=== PATIENT | male | born 1965 | race Hispanic/Latino ===

== ENCOUNTER 2021-10-26 13:56 | Emergency (ER) | payer SELFPAY ==
--- OUTSIDE RECORDS SUMMARY | 2021-10-26 13:59 | XMS REPORT | Continuity of Care Document ---
:1965 Author Organization [facility] t Address [address] [place] [address] Dr. Rojas. [address] [place] [address] Care Team Providers Name Role Phone Sami Domínguez MD, Lincoln T Primary Care Physician Liam KOVACS, Kandace Roy Attending Clinician Unavailable Only, Shashi Uc Test Attending Clinician Unavailable Unknown, Attending Attending Clinician Unavailable Yaya GRANT, Daquan Head Attending Clinician DAQUAN JAVIER Attending Clinician Unavailable Problems Condition Condition Condition Status Onset Resolution Last Treating Co mments Source Name Details Category Date Date Treatment Clinician Date Pain of Pain of Disease Active Univers right right 3-01 ity of lower lower 00:00: [place] extremity extremity 00 [facility] Branch Blurred Blurred Disease Active Univers vision, vision, 8-21 ity of left eye left eye 00:00: [place] 00 Medical Branch 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 8- ity of of both of both 00:00: [place] eyes eyes 00 Medical Branch Glaucoma Glaucoma Disease Active Unive rs suspect of suspect of 8- it y of both eyes both eyes [facility]: [facility] Dry eyes, Dry eyes, Disease Active Uni vers bilateral bilateral 8-21 ity of 00:00: [place] [address] Medical Branch Essential Essential Disease Active Uni vers hypertensi hypertensi 5-08 it y of on on 00:00: [place] [address] Medical [place] Type 2 Type 2 Disease Active Univers diabetes diabetes 08 ity of mellitus mellitus 00:00: [address] Allergies, Adverse Reactions, Alerts Allergy Allergy Status Severity Reaction(s) Onset Inactive Treating Comm ents Source Name Type Date Date Clinician NO KNOWN Drug Active Univers ALLERGIE Class ity of S [facility] Social History Social Habit Start Date Stop Date Quantity Comments Source History SDOH University o f Alcohol Frequency [place] M edical Branch History SDOH University o f Alcohol Std [place] Medical Drinks Branch History SDKY University o f Alcohol Binge [place] Medic al Branch Exposure to 2021-09-09 2021-09-19 Not sure [facility]-CoV-2 00:00:00 14:39:00 [facility] (event) [place] Alcohol intake 2020-06-30 2020-06-30 .12 /d University of 00:00:00 00:00:00 [facility] Tobacco use and 2014-07-15 2014-07-15 Smokeless tobacco Un iversity of exposure 00:00:00 00:00:[address] [facility] Alcohol Comment 2014-04-25 2014-04-25 occasionally Univers ity of 00:00:00 00:00:00 [facility] Sex Ass[birth year] At [birth year] Universit y of 00:00:00 00:00:00 [facility] Smoking Status Start Date Stop Date Source Never smoked tobacco [facility] Medications Ordered Filled Start Stop Current Ordering Indication Dosage Frequency Signature Comments Components Source Medication Medication Date Date Medication? Clinician (SIG) Name Name lisinopriL- Yes [id number] 1{tbl} Take 1 Univers hydrochloro 4-23 tablet by ity of thiazide 00:00: mouth 2 [place] 20-12.5 mg 00 (two) Medical per tablet times Branch daily. propranoloL Yes [id number] TAKE TWO Univers 40 mg 4-23 TABLETS BY ity of tablet 00:00: MOUTH [place] 00 TWICE Medical DAILY Branch atorvastati Yes [id number] 20mg Take 1 Univers n 20 mg 4-23 tablet by ity of tablet 00:00: mouth at [place] 00 bedtime. Medical Branch celecoxib Yes [id number] 200mg Take 1 Univers (CELEBREX) 4-23 capsule by ity of 200 mg 00:00: mouth [place] capsule 00 daily. Medical Branch insulin NPH Yes 45U inject 45 U nivers 100 unit/mL 4-23 Units ity of injection 00:00: under the Shashi as 00 skin every Medical morning Branch and evening. Insulin Yes Use as Univers [place], 4-23 directed ity of Disposable, 00:00: [place] (ANIYA PEN 00 Medical NEEDLE) 32 Branch gauge x 5/32" Ndle topiramate Yes [id number] 50mg Take 1 U nivers 50 mg 4-23 tablet by ity of tablet 00:00: mouth at [place] 00 bedtime. Medical Branch omeprazole Yes [id number] 40mg Take 1 U nivers 40 mg 4-23 capsule by ity of capsule 00:00: mouth [place] 00 daily. Medical Branch cyclobenzap Yes [id number] 10mg Take 1 Univers rine 10 mg 4-23 tablet by ity of tablet 00:00: mouth at [place] 00 bedtime. Medical Branch lisinopriL- Yes [id number] 1{tbl} Take 1 Univers hydrochloro 4-23 tablet by ity of thiazide 00:00: mouth 2 [place] 20-12.5 mg 00 (two) Medical per tablet times Branch daily. propranoloL Yes [id number] TAKE TWO Univers 40 mg 4-23 TABLETS BY ity of tablet 00:00: MOUTH [place] 00 TWICE Medical DAILY Branch atorvastati Yes [id number] 20mg Take 1 Univers n 20 mg 4-23 tablet by ity of tablet 00:00: mouth at [place] 00 bedtime. Medical Branch celecoxib Yes [id number] 200mg Take 1 Univers (CELEBREX) 4-23 capsule by ity of 200 mg 00:00: mouth [place] capsule 00 daily. Medical Branch insulin NPH Yes 45U inject 45 U nivers 100 unit/mL 4-23 Units ity of injection 00:00: under the Shashi as 00 skin every Medical morning Branch and evening. Insulin Yes Use as Univers [place], 4-23 directed ity of Disposable, 00:00: [place] (ANIYA PEN 00 Medical NEEDLE) 32 Branch gauge x 5/32" Ndle topiramate Yes [id number] 50mg Take 1 U nivers 50 mg 4-23 tablet by ity of tablet 00:00: mouth at [place] [address] bedtime. Medical Branch omeprazole Yes [id number] 40mg Take 1 U nivers 40 mg 4-23 capsule by ity of capsule 00:00: mouth [place] 00 daily. Medical Branch cyclobenzap Yes [id number] 10mg Take 1 Univers rine 10 mg 4-23 tablet by ity of tablet 00:00: mouth at [place] [address] bedtime. Medical Branch aspirin 81 Yes 81mg Take 81 mg U nivers mg chewable 5-11 by mouth ity of tablet 09:37: daily. [address] Branch Magnesium Yes 2{capsu Take 2 Uni vers Oxide 500 5-11 le} Caps by ity of mg Cap 09:37: mouth 2 [place] [address] (two) Medical times Branch daily. aspirin 81 Yes 81mg Take 81 mg U nivers mg chewable 5-11 by mouth ity of tablet 09:37: daily. [address] Branch Magnesium 0 Yes 2{capsu Take 2 Uni vers Oxide 500 5-11 le} Caps by ity of mg Cap 09:37: mouth 2 [place] [address] (two) Medical times Branch daily. blood sugar Yes [id number] Check Univers diagnostic 07-05 9109 blood ity of (TRUETEST 00:00: sugar two Shashi as TEST 00 times a Medical STRIPS) day. Type Branch strip 2 diabetes mellitus without complicati on, with termite treater insulin use blood sugar Yes [id number] Check Univers diagnostic 07-05 9109 blood ity of (TRUETEST 00:00: sugar two Shashi as TEST 00 times a Medical STRIPS) day. Type Branch strip 2 diabetes mellitus without complicati on, with detention insulin use sildenafil Yes Take 1 tab U nivers (VIAGRA) 50 2-11 daily as ity of mg tablet 00:00: needed 30 Shashi as 00 minutes Medical before Branch sexual encounter sildenafil 2016-0 Yes Take 1 tab U nivers (VIAGRA) 50 2-11 daily as ity of mg tablet 00:00: needed 30 Shashi as 00 minutes Medical before Branch sexual encounter Procedures This patient has no known procedures. Encounters Start End Encounter Admission Attending Care Care Encounter Source Date/Time Date/Time Type Type Clinicians Facility Department ID 2021-09-20 2021-09-20 Telephone CORINNA Wheeler [id number] Univers 00:00:00 00:00:00 Kandace SALAZAR [id number] i ty of [facility] [id number] Shashi as [id number] [facility] 019 Branch 2021-09-19 2021-09-19 Laboratory Only, Shashi Uc Test [facility] [id number] Univers 14:30:00 14:45:37 Only Unknown, Attending HEALTH [id number] shadi of Daquan Javier [place] [id number] [place] [id number] [facility] PRIMARY & 370 Branch SPECIALTY CARE 2021-09-19 2021-09-19 Outpatient R YAYA [facility] [id number] Univers 14:30:00 14:45:37 DAQUAN hsu [facility] Results This patient has no known results.
[2021-10-26 14:51] LABS: Absolute Lymphocytes (CBC) 2.2 K/uL (0.7-4.9); Hematocrit 43.1 % (39.6-49.0); Lymphocytes % 30.8 % (15.3-44.8); MCV 83.4 fL (80-100); MPV 8.4 fL (7.6-11.3); RBC Red Blood Cell Count 5.17 M/uL (4.33-5.43)
[2021-10-26 14:54] LABS: Protime INR 1.01
[2021-10-26 15:01] LABS: ALT/SGPT 22 U/L (12-78); AST/SGOT 23 U/L (15-37); Albumin 3.4 g/dL (3.4-5.0); Alkaline Phosphatase 85 U/L (45-117); BUN Blood Urea Nitrogen 19 mg/dL (7-18); Bicarbonate 24 mmol/L (21-32); Bilirubin Total 0.2 mg/dL (0.2-1.0); CKMB Creatine Kinase MB 2.8 ng/mL (1.0-3.6); Creatine Phosphokinase 423 U/L (39-308); Glomerular Filtration Rate 68 ml/min (=/>90); Glucose Level 224 mg/dL (74-106); Lipase 100 U/L (73-393); Magnesium 1.7 mg/dL (1.8-2.4); Potassium 3.6 mmol/L (3.5-5.1); Protein, Total 7.2 g/dL (6.4-8.2); Sodium Level 137 mmol/L (136-145)
[2021-10-26 15:02] LABS: Bilirubin Direct < 0.1 mg/dL (0-0.2)
--- NOTE | 2021-10-26 15:04 | RAD REPORT ---
EXAM DESCRIPTION: CT - Head Brain Wo Cont - 10/26/2021 2:41 pm CLINICAL HISTORY: Syncope COMPARISON: None TECHNIQUE: Computed axial tomography of the head was obtained. IV contrast was not requested. All CT scans are performed using dose optimization technique as appropriate and may include automated exposure control or mA/KV adjustment according to patient size. FINDINGS: An intracranial bleed is not seen . The ventricles are normal in caliber. No extra-axial fluid collection is noted. Mild to moderate low-density areas within periventricular, deep and subcortical white matter likely r epresent ischemic changes secondary to small vessel disease. Fluid within the sphenoid sinus IMPRESSION: No acute intracranial abnormality is seen. If patient's symptoms persist MRI of the bra in would be recommended. Fluid within the sphenoid sinus may indicate acute sinusitis
[2021-10-26 15:47] LABS: Urine Blood Negative (Negative); Urine Glucose Trace (Negative); Urine Protein Negative (Negative); Urine Specific Gravity 1.025 (1.005-1.030); Urine pH 6.5 (5.0-7.0)
--- NOTE | 2021-10-26 16:06 | EDPHYS ---
Physician Documentation [facility] Name: Kenyon Boone Age: 56 yrs Sex: Male : 1965 Arrival Date: 10/26/2021 Time: 13:57 Bed 10 Private MD: ED Physician Ken Gray HPI: 10/26 18:05 This 56 yrs old Male presents to ER via Ambulatory with complaints of Doesn't kb Feel Right, Dizziness, lightheaded. 18:06 The patient presents with dizziness. Onset: The symptoms/episode began/occurred today. kb Context: occurred at home, occurred while the patient was working, just prior to the episode the patient experienced no apparent symptoms. Modifying factors: The symptoms are alleviated by nothing, the symptoms are aggravated by holding head down. Associated signs and symptoms: The patient has no apparent associated signs or symptoms. Severity of symptoms: At their worst the symptoms were mild moderate in the emergency department the symptoms are unchanged. Patient's baseline: Neuro: alert and fully oriented, Motor: no deficits, Ambulation: walks without assistance, Speech: normal. The patient has not experienced similar symptoms in the past. The patient has not recently seen a physician. Historical: - Allergies: 14:09 No Known Allergies; bm7 - Home Meds: 14:09 Novolin 70/30 InnoLet Insulin 100 unit/mL (70-30) Sub-Q inpn [Active]; bm7 - PMHx: 14:09 Diabetes mellitus; Hypertensive disorder; bm7 - PSHx: 14:09 None; bm7 - Immunization history:: Adult Immunizations up to date, Client reports having NOT received the Covid vaccine. - Social history:: Smoking status: Patient/guardian denies using tobacco products. ROS: 18:05 Constitutional: Negative for fever, chills, and weight loss. kb 18:05 Neuro: Positive for dizziness, tingling all over. 18:05 All other systems are negative. Exam: 14:34 Constitutional: This is a well developed, well nourished patient who is awake, alert, kb and in no acute distress. Head/Face: Normocephalic, atraumatic. Eyes: Pupils equal round and reactive to light, extra-ocular motions intact. Lids and lashes normal. Conjunctiva and sclera are non-icteric and not injected. Cornea within normal limits. Periorbital areas with no swelling, redness, or edema. ENT: Moist Mucous membranes Cardiovascular: Regular rate and rhythm with a normal S1 and S2. No gallops, murmurs, or rubs. No pulse deficits. Respiratory: Respirations even and unlabored. No increased work of breathing. Talking in full sentences Abdomen/GI: Soft, non-tender. No distention Skin: Warm, dry with normal turgor. Normal color. MS/ Extremity: Pulses equal, no cyanosis. Neurovascular intact. Full, normal range of motion. Neuro: Awake and alert, GCS 15, oriented to person, place, time, and situation. Moves all extremities. Normal gait. Psych: Awake, alert, with orientation to person, place and time. Behavior, mood, and affect are within normal limits. 14:34 ECG was reviewed by the Attending Physician. An electrocardiogram was deferred on this patient Vital Signs: 14:05 BP 174 / 93; Pulse 94; Resp 18; Temp 98.2(TE); Pulse Ox 98% on R/A; Weight 88.45 kg bm7 (R); Height 5 ft. 8 in. (172.72 cm); Pain 0/10; 15:50 BP 167 / 99 Sitting; Pulse 90; Resp 18; Pulse Ox 100% ; Pain 0/10; kb3 15:52 BP 158 / 97 Standing; Pulse 90; Resp 18; Pulse Ox 99% ; Pain 0/10; kb3 15:55 BP 156 / 85 Supine; Pulse 78; Resp 16; Pulse Ox 98% ; Pain 0/10; kb3 14:05 Body Mass Index 29.65 (88.45 kg, 172.72 cm) bm7 MDM: 14:21 Patient medically screened. kb 18:05 Data reviewed: vital signs, nurses notes. Data interpreted: Pulse oximetry: on room air kb is 98 %. Interpretation: normal. Counseling: I had a detailed discussion with the patient and/or guardian regarding: the historical points, exam findings, and any diagnostic results supporting the discharge/admit diagnosis, lab results, radiology results, the need for outpatient follow up, a family practitioner, to return to the emergency department if symptoms worsen or persist or if there are any questions or concerns that arise at home. 10/26 14:22 Order name: Basic Metabolic Panel; Complete Time: 15:02 kb 10/26 14:22 Order name: CBC with Diff; Complete Time: 14:56 kb 10/26 14:22 Order name: CPK; Complete Time: 15:02 kb 10/26 14:22 Order name: Ckmb; Complete Time: 15:02 kb 10/26 14:22 Order name: Hepatic Function; Complete Time: 15:02 kb 10/26 14:22 Order name: Lipase; Complete Time: 15:02 kb 10/26 14:22 Order name: Magnesium; Complete Time: 15:02 kb 10/26 14:22 Order name: Protime (+inr); Complete Time: 14:56 kb 10/26 14:22 Order name: Ptt, Activated; Complete Time: 14:56 kb 10/26 14:22 Order name: CT Head Brain wo Cont; Complete Time: 15:07 kb 10/26 14:22 Order name: EKG; Complete Time: 14:23 kb 10/26 14:22 Order name: Cardiac monitoring; Complete Time: 15:46 kb 10/26 14:31 Order name: Glucose, Ancillary Testing; Complete Time: 14:34 EDMS 10/26 15:47 Order name: Urine Dipstick-Ancillary; Complete Time: 15:47 EDMS 10/26 14:22 Order name: EKG - Nurse/Tech; Complete Time: 15:45 kb 10/26 14:22 Order name: IV Saline Lock; Complete Time: 15:18 kb 10/26 14:22 Order name: Labs collected and sent; Complete Time: 15:18 kb 10/26 14:22 Order name: NPO; Complete Time: 16:52 kb 10/26 14:22 Order name: O2 Per Protocol; Complete Time: 15:46 kb 10/26 14:22 Order name: O2 Sat Monitoring; Complete Time: 15:46 kb 10/26 14:22 Order name: Urine Dipstick-Ancillary (obtain specimen); Complete Time: 15:46 kb 10/26 14:22 Order name: Orthostatics; Complete Time: 16:52 kb EC:34 Rate is 98 beats/min. Rhythm is regular. QRS [place] is Normal. UT interval is normal at kb 166 msec. QRS interval is normal at 102 msec. QT interval is normal at 477 msec. Administered Medications: No medications were administered Point of Care Testing: Blood Glucose: 14:07 Blood Glucose: 197 mg/dL; bm7 Ranges: Critical Glucose Levels:Adult <50 mg/dl or >400 mg/dl <40 mg/dl or >180 mg/dl Disposition Summary: 10/26/21 16:06 Discharge Ordered Location: Home kb Condition: Stable kb Diagnosis - Dizziness and giddiness kb - Acute sinusitis, unspecified kb Followup: kb - With: Emergency Department - When: As needed - Reason: Worsening of condition Followup: kb - With: Private Physician - When: 2 - 3 days - Reason: Recheck today's complaints, Continuance of care, Re-evaluation by your physician Discharge Instructions: - Discharge Summary Sheet kb - Sinusitis, Adult, [id number] kb - Dizziness, [id number] kb Forms: - Medication Reconciliation Form kb - Thank You Letter kb - Antibiotic Education kb - Prescription Opioid Use kb Prescriptions: - Augmentin 875-125 mg Oral Tablet - take 1 tablet by ORAL route every 12 hours for 10 days; 20 tablet; Refills: 0, kb Product Selection Permitted Signatures: Dispatcher [employer] Ximena Mejia, HEADING PINNER-C HEADING PINNER-Janel Calabrese, RN RN bm7
--- NOTE | 2021-10-26 16:06 | ER ---
Nurse's Notes [facility] Name: Kenyon Boone Age: 56 yrs Sex: Male : 1965 Arrival Date: 10/26/2021 Time: 13:57 Bed 10 Private MD: Diagnosis: Dizziness and giddiness;Acute sinusitis, unspecified Presentation: 10/26 14:07 Chief complaint: Patient states: I was eating about thirty minutes ago and I got really bm7 light headed. I checked my blood sugar and it was 180 and I just feel tingly all over. Coronavirus screen: At this time, the client does not indicate any symptoms associated with coronavirus-19. Ebola Screen: No symptoms or risks identified at this time. Initial Sepsis Screen: Does the patient meet any 2 criteria? No. Patient's initial sepsis screen is negative. Does the patient have a suspected source of infection? No. Patient's initial sepsis screen is negative. Risk Assessment: Do you want to hurt yourself or someone else? Patient reports no desire to harm self or others. Onset of symptoms was October 26, 2021. 14:07 Method Of Arrival: Ambulatory banner 14:07 Acuity: SAURABH 3 bm7 Triage Assessment: 14:09 General: Appears in no apparent distress. comfortable, Behavior is calm, cooperative, bm7 appropriate for age. Pain: Denies pain. EENT: No deficits noted. No signs and/or symptoms were reported regarding the EENT system. Neuro: Level of Consciousness is awake, alert, obeys commands, Oriented to person, place, time, situation, Mechanic Driver are equal bilaterally Moves all extremities. Gait is steady, Speech is normal, Facial symmetry appears normal, Reports dizziness. Cardiovascular: No deficits noted. Denies chest pain, shortness of breath. Respiratory: No deficits noted. GI: No deficits noted. No signs and/or symptoms were reported involving the gastrointestinal system. : No deficits noted. No signs and/or symptoms were reported regarding the genitourinary system. Derm: No deficits noted. No signs and/or symptoms reported regarding the dermatologic system. Musculoskeletal: No deficits noted. No signs and/or symptoms reported regarding the musculoskeletal system. Historical: - Allergies: 14:09 No Known Allergies; banner - Home Meds: 14:09 Novolin 70/30 InnoLet Insulin 100 unit/mL (70-30) Sub-Q inpn [Active]; bm7 - PMHx: 14:09 Diabetes mellitus; Hypertensive disorder; 7 - PSHx: 14:09 None; 7 - Immunization history:: Adult Immunizations up to date, Client reports having NOT received the Covid vaccine. - Social history:: Smoking status: Patient/guardian denies using tobacco products. Screenin:49 Abuse screen: Denies threats or abuse. Denies injuries from another. Nutritional kb3 screening: No deficits noted. Tuberculosis screening: No symptoms or risk factors identified. Fall Risk No fall in past 12 months (0 pts). Secondary diagnosis (15 points) Dizziness. IV access (20 points). Ambulatory Aid- None/Bed Rest/Nurse Assist (0 pts). Gait- Normal/Bed Rest/Wheelchair (0 pts) Mental Status- Oriented to own ability (0 pts). Total [place] Fall Scale indicates No Risk (0-24 pts). Assessment: 15:49 General: Received care of pt ambulatory from [employer] without distress. PT reports he kb3 became dizzy and nauseous while sitting down to eat lunch. 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 Pt denies CP, SOB, headache. Reports the symptoms have completely resolved at this time. Vital Signs: 14:05 BP 174 / 93; Pulse 94; Resp 18; Temp 98.2(TE); Pulse Ox 98% on R/A; Weight 88.45 kg banner (R); Height 5 ft. 8 in. (172.72 cm); Pain 0/10; 15:50 BP 167 / 99 Sitting; Pulse 90; Resp 18; Pulse Ox 100% ; Pain 0/10; kb3 15:52 BP 158 / 97 Standing; Pulse 90; Resp 18; Pulse Ox 99% ; Pain 0/10; kb3 15:55 BP 156 / 85 Supine; Pulse 78; Resp 16; Pulse Ox 98% ; Pain 0/10; kb3 14:05 Body Mass Index 29.65 (88.45 kg, 172.72 cm) banner ED Course: 13:57 Patient arrived in ED. am2 14:05 Arm band placed on right wrist. 7 14:09 Triage completed. 7 14:19 EKG completed in triage. Results shown to MD. banner 14:21 Ximena Lechuga FNP-C is [facility]. kb 14:21 Ken Gray MD is Attending Physician. kb 14:43 CT Head Brain wo Cont In Process Unspecified. EDMS 15:18 Initial lab(s) drawn, by me, sent to lab. Inserted saline lock: 20 gauge in right em1 forearm, using aseptic technique. Blood collected. 15:49 Patient has correct armband on for positive identification. Bed in low position. Call kb3 light in reach. 15:49 No provider procedures requiring assistance completed. kb3 15:55 Peggy Alva, RN is Primary Nurse. kb3 16:51 IV discontinued, intact, bleeding controlled, No redness/swelling at site. kb3 Administered Medications: No medications were administered Medication: 15:49 VIS not applicable for this client. kb3 Point of Care Testing: Blood Glucose: 14:07 Blood Glucose: 197 mg/dL; bm7 Ranges: Outcome: 16:06 Discharge ordered by MD. kb 16:51 Discharged to home ambulatory. kb3 16:51 Condition: stable 16:51 Discharge instructions given to patient, Instructed on discharge instructions, follow up and referral plans. medication usage, safety practices, Demonstrated understanding of instructions, follow-up care, medications. 16:51 Patient left the ED. kb3 Signatures: Dispatcher [employer] EDNY Ximena Lechuga FNP-C FNP-Kaiden Quevedo em1 Milagro Castelan am2 Janel Renee, RN RN bm7 Peggy Alva, RN RN kb3
[2021-10-26 17:29] VITALS: TEMP 98.2
[2021-10-26 17:50] VITALS: BP 156/85; O2SAT 98
--- NOTE | 2021-10-27 08:56 | EKG ---
Test Date: 2021-10-26 Test Time: 14:13:18 Maintenance Machinist: EDELMIRA MEASUREMENT RESULTS: Intervals: Rate: 98 WV: 166 QRSD: 102 QT: 374 QTc: 477 Mcdowell: P: 52 WV: 166 QRS: 86 T: 14 INTERPRETIVE STATEMENTS: Normal sinus rhythm Normal ECG No previous ECG available for comparison Electronically Signed On 10-27-21 08:55:54 CDT by Bryson Edgar
== END 2021-10-26 16:51 | disposition home or self-care (01) ==
LOC: ER 13:56
DX: J01.90 Acute sinusitis, unspecified (principal); E11.9 Type 2 diabetes mellitus without complications; Z79.4 Long term (current) use of insulin; I10 Essential (primary) hypertension
CPT/HCPCS: 36415; 70450; 80048; 80076; 81003; 82550; 82553; 82947; 83690; 83735; 85025; 85610; 85730; 93005; 99284